=== PATIENT | female | born 1950 | race Caucasian/White ===

== ENCOUNTER 2017-05-08 13:51 | Emergency (ER) | payer MEDICARE, MEDICAID ==
[~2017-05-08] VITALS: Ht 154.9 cm; Wt 81.6 kg
[~2017-05-08 13:51] MED LIST: AMOX500C2 PO; CETI10TA57; CPR500T PO; ETD400T; HYDR12.570 PO; LORA10TA56 PO; METO50TA7 PO; NITR-65 PO; NS.65NA45; ONDAN4ODT PO; PROP20TA23; PROP20TA23 PO; RANI-10 PO; SIMV20TA3 PO
[2017-05-08] MEDS ORDERED: RIZA10TA25 (14:10)
[2017-05-08] MEDS ORDERED: LISI10TA2 PO (14:10)
[2017-05-08] MEDS ORDERED: TRAM50TA2 (14:10)
[2017-05-08] MEDS ORDERED: ENAL10TA (14:10)
[2017-05-08] MEDS ORDERED: SIMV20TA3 (14:10)
[2017-05-08] MEDS ORDERED: MELO15TA39 (14:10)
--- NOTE | 2017-05-08 14:19 | ED Back Pain ---
General Chief Complaint: Back Problems Stated Complaint: BACK PAIN Nursing Triage Note: PT CO OF CHRONIC BACK PAIN STATES HURTS IN UPPER MIDDLE OF BACK RATES 10/10 STATES HAS SOME SORT OF TUMOR THERE Nursing Sepsis Screen: No Definite Risk Source of Information: Patient Exam Limitations: No Limitations History of Present Illness Date Seen by Provider: May 08, 2017 Time Seen by Provider: 14:19 Initial Comments 66 yo female patient presents to the ED with c/o chronic upper and lower back pain that is worse today. patient states she has 2 known lipomas of the back. reports seeing dr. jett a couple of years ago to have the lipoma's removed, but johnie told the patient the wounds would have to be packed for several days or weeks until they were healed. Also c/o BUE and hand tingling/pain especially with crocheting. patient crochets daily. patient takes tramadol without improvement in pain. Pain rated at 10/10. Radiation: Other (pain radiating down the bilateral upper extremities intermittently.) Method of Injury: Unknown (denies known injury) Modifying Factors: Worse With Movement, Worse With Other (worse with palpation) Associated Symptoms: No loss of bladder control, No loss of bowel control Allergies and Home Medications Allergies Coded Allergies: NKANo Known Allergies (Unverified Allergy, Mild, 12/30/07) Home Medications Enalapril Maleate 10 Mg Tablet, (Reported) Hydrocodone Bit/Acetaminophen 1 Tab Tab, 0.5-1 TAB PO Q6H PRN for pain, #14 Ref 0 Prescribed by: AMY ROBERT on 05/08/171506 Lisinopril 10 Mg Tablet, Unknown Dose PO DAILY, (Reported) Meloxicam 15 Mg Tablet, (Reported) Orphenadrine Citrate 100 Mg Tablet.er, 100 MG PO BID PRN for SPASMS, #10 Ref 0 Prescribed by: AMY ROBERT on 05/08/17 150 Prednisone 20 Mg Tab, 40 MG PO DAILY, #10 Ref 0 Prescribed by: AMY ROBERT on 05/08/171506 Rizatriptan Benzoate 10 Mg Tab.clem, (Reported) Simvastatin 20 Mg Tablet, (Reported) Tramadol HCl 50 Mg Tablet, (Reported) Constitutional: no symptoms reported EENTM: no symptoms reported Respiratory: No cough, No dyspnea on exertion, No orthopnea, No phlegm, No short of breath Cardiovascular: No chest pain, No edema, No palpitations, No syncope Gastrointestinal: No abdominal pain, No constipation, No diarrhea, No loss of appetite, No nausea, No vomiting Genitourinary: No decreased output, No dysuria, No frequency, No hematuria, No pain Musculoskeletal: see HPI, back pain, joint pain, No neck pain Skin: no symptoms reported Psychiatric/Neurological: See HPI, Denies Headache, Numbness, Denies Seizure, Tingling, Denies Tremors, Denies Weakness All Other Systems Reviewed Negative Unless Noted: Yes (Negative excepted noted.) Past Kvdstcs-Qlwesz-Jubdze Hx Patient Social History Alcohol Use: Denies Use Recreational Drug Use: No Smoking Status: Never a Smoker Recent Foreign Travel: No Contact w/Someone Who Travel: No Recent Infectious Disease Expo: No Recent Hopitalizations: No Physical Abuse: No Sexual Abuse: No Immunizations Up To Date Date of Influenza Vaccine: Dec 30, 2011 Seasonal Allergies Seasonal Allergies: No Surgeries History of Surgeries: Yes ( BREAST BX) Surgeries: Tubal Ligation Respiratory History of Respiratory Disorde: No Cardiovascular History of Cardiac Disorders: Yes (MILD NC 2007) Neurological History of Neurological Disord: Yes (SHORT TERM MEMORY LOSS, "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") Reproductive System AUTOMOBILE DEALER History: Menopausal Genitourinary History of Genitourinary Disor: No Gastrointestinal History of Gastrointestinal Di: Yes Gastrointestinal Disorders: Gastroesophageal Reflux, Chronic Constipation Musculoskeletal History of Musculoskeletal Dis: Yes (subcutaneous lipoma of the midline back ( at the level of L2) ) Musculoskeletal Disorders: Arthritis, Fractures Endocrine History of Endocrine Disorders: No Cancer History of Cancer: No Psychosocial History of Psychiatric Problem: Yes Behavioral Health Disorders: Depression Suicide Risk Score: 0 Integumentary History of Skin or Integumenta: No Blood Transfusions History of Blood Disorders: No Reviewed Nursing Assessment Reviewed/Agree w Nursing PMH: Yes Family Medical History Significant Family History: No Pertinent Family Hx Physical Exam Vital Signs Vital Signs - First Documented 05/08/17 13:55 Temp 97.9 Pulse 110 Resp 18 B/P (MAP) 162/80 (107) Pulse Ox 96 Capillary Refill : Less Than 3 Seconds General Appearance: No Apparent Distress, WD/WN HEENT: PERRL/EOMI, Pharynx Normal Neck: Full Range of Motion, Normal Inspection, Non Tender, Supple Cardiovascular: Regular Rate, Rhythm, No Edema, No Murmur, Normal Peripheral Pulses Respiratory: Lungs Clear, Normal Breath Sounds, No Accessory Muscle Use, No Respiratory Distress Peripheral Pulses: 2+ Dorsalis Pedis (R), 2+ Left Dors-Pedis (L), 2+ Radial Pulses (R), 2+ Radial Pulses (L) Gastrointestinal: Normal Bowel Sounds, No Organomegaly, Non Tender, Soft, No Distended Back: No Vertebral Tenderness, No Decreased Range of Motion, Muscle Spasm, Other (5x6 cm lipoma of the midline low back with TTP. 3x3 cm lipoma of the upper midline back with TTP. ) Extremity: Normal Capillary Refill, Normal Inspection, Normal Range of Motion, No Calf Tenderness, No Pedal Edema, Other ((+) compression test of the left wrist. no deformity, swelling, or ecchymosis. ) Neurologic/Psychiatric: Alert, Oriented x3, No Motor/Sensory Deficits, Normal Mood/Affect, business transformation consultant II-XII Norm as Tested Skin: Normal Color, Warm/Dry Progress/Results/Core Measures Results/Orders My Orders Orders - AMY ROBERT Hydrocodone/Apap 5/325 Tablet (Lortab 5 (05/08/17 14:56) Vital Signs/I&O Vital Sign - Last 12Hours 05/08/17 05/08/17 13:55 15:27 Temp 97.9 97.9 Pulse 110 110 Resp 18 18 B/P (MAP) 162/80 (107) Pulse Ox 96 96 Blood Pressure Mean: 107 Departure Communication (Admissions) Progress Notes Patient case discussed with Nancy Rico APRN including history, vital signs, and exam findings. Nancy did okay giving patient a prescription for a small amount of hydrocodone. Patient to f/u with her or dr. hayden in the office for recheck. Patient also to f/u with dr. bustamante for discussion of possible need for lipoma excision. patient verbalizes understanding and agrees with the treatment plan. Impression Impression: Primary Impression: Carpal tunnel syndrome of left wrist Additional Impressions: Radiculopathy Qualified Codes: M54.13 - Radiculopathy, cervicothoracic region Lipoma of back Disposition: 01 HOME, SELF-CARE Condition: Improved Departure-Patient Inst. Decision time for Depature: 15:03 Referrals: BRIANA BUSTAMANTE BRETT D DO IPSEN, BRIAN J MD SEGLIE, FLOYD R MD (PCP/Family) Primary Care Physician Patient Instructions: Carpal Tunnel Syndrome (DC), Lipoma , Radiculopathy (DC) Add. Discharge Instructions: All discharge instructions reviewed with patient and/or family. Voiced understanding. Medications as instructed. Do not use tramadol with the medications prescribed in the emergency department. Continue meloxicam as instructed by Dr. Hayden. Avoid repetitive use of the bilateral hands and forearms for 5-7 days. Use ice packs or heating pads as needed for pain. Follow-up with Dr. Bustamante or Dr. Burns as an outpatient for discussion of lipoma removal. Call their office for appointment time. Follow-up with Dr. Hayden as an outpatient for recheck and for possible need of an outpatient MRI to further evaluate the radiculopathy symptoms and carpal symptoms. Call for appointment time. Return to the emergency department for worsened symptoms or any other concerns. Scripts Hydrocodone Bit/Acetaminophen (Hydrocodone/Acetaminophen 5/325mg Tablet) 1 Tab Tab 0.5-1 TAB PO Q6H Y for pain, #14 TAB 0 Refills Prov: AMY ROBERT 05/08/17 Orphenadrine Citrate (Orphenadrine Citrate) 100 Mg Tablet.er 100 MG PO BID Y for SPASMS, #10 TAB 0 Refills Prov: AMY ROBERT 05/08/17 Prednisone (Prednisone) 20 Mg Tab 40 MG PO DAILY, #10 TAB 0 Refills Prov: AMY ROBERT 05/08/17 Copy Copies To 1: VIVIAN HAYDEN MD, GRETCHEN L PA May 08, 2017 14:19
[2017-05-08] MEDS ORDERED: HYDROcodone/APAP 5 MG/325 MG (LORTAB) TAB PO STA (14:56)
[2017-05-08] MEDS ORDERED: PRD20T PO (15:07)
[2017-05-08] MEDS ORDERED: ORPH100T PO (15:07)
[2017-05-08] MEDS ORDERED: ACHD5005 PO (15:07)
[2017-05-08 15:27] VITALS: BP 162/80
--- OUTSIDE RECORDS SUMMARY | 2017-05-11 05:41 | XMS REPORT | Continuity of Care Document ---
Author Author [facility] Organization [facility] Address Unknown Phone Unavailable Allergies Active Description Code Type Severity Reaction Onset Reported/Identified Relationship to Patient Clinical Status Yes NKANo Known Allergies NKA Miscellaneous Allergy Mild N/A 12/30/2007 Medications There is no data. Problems Date Dx Coded Attending Type Code Diagnosis Diagnosed By 10/09/2009 Ot 276.51 10/09/2009 Ot 599.0 10/09/2009 Ot 784.0 10/09/2009 Ot 787.03 10/09/2009 Ot 789.00 03/02/2010 Ot 558.9 03/02/2010 Ot 787.03 10/08/2010 Ot 401.9 HYPERTENSION NOS 10/08/2010 Ot 719.46 JOINT PAIN-L /LEG 10/08/2010 Ot 729.5 PAIN IN LIMB 10/08/2010 Ot 780.4 DIZZINESS AND GIDDINESS 10/08/2010 Ot V15.88 HISTORY OF FALL 10/08/2010 Ot V57.1 PHYSICAL THERAPY NEC 04/22/2011 Ot 461.9 ACUTE SINUSITIS NOS 04/22/2011 Ot 786.2 COUGH 06/27/2012 Ot 558.9 NONINF GASTROENTERIT NEC 06/27/2012 Ot 599.0 URIN TRACT INFECTION NOS 06/27/2012 Ot 787.01 NAUSEA WITH VOMITING 11/25/2014 LADAN TIMMONS DO Ot V76.12 12/13/2014 LADAN TIMMONS DO Ot V76.12 12/15/2014 CARMEN BELTRAN DO Ot 782.2 12/21/2014 CARMEN BELTRAN DO Ot 553.3 12/21/2014 CARMEN BELTRAN DO Ot 782.2 12/21/2014 CARMEN BELTRAN DO Ot V81.5 12/28/2014 LADAN TIMMONS DO Ot 793.80 01/03/2015 CARMEN BELTRAN DO Ot 553.3 01/03/2015 DEVIN DO, CHANDROUTIE Ot 782.2 01/03/2015 DEVIN DO, PENELOPEROUTIE Ot V81.5 01/04/2015 GELLENDER DO, LADAN Nguyễn Ot 793.80 02/07/2015 GELLENDER DO, LADAN Nguyễn Ot V76.12 02/07/2015 DEVIN DO, LUISTIE Ot 782.2 06/14/2015 GELLENDER DO, LADAN Nguyễn Ot V76.12 06/14/2015 DEVIN DO, CHANDROUTIE Ot 782.2 06/14/2015 GELLENDER DO, LADAN Nguyễn Ot 793.80 06/14/2015 DEVIN DO, PENELOPEROUTIE Ot 553.3 06/14/2015 DEVIN DO, PNEELOPEROUTIE Ot 782.2 06/14/2015 DEVIN DO, CARMEN Ot V81.5 06/15/2015 GELLENDER DO, LADAN Nguyễn Ot N63 06/20/2015 GELLENDER DO, LADAN Nguyễn Ot N63 07/04/2015 GELLENDER DO, LADAN Nguyễn Ot N63 07/12/2015 GELLENDER DO, LADAN Nguyễn Ot N63 12/07/2015 GELLENDER DO, LADAN Nguyễn Ot V76.12 OTH SCREEN MAMMO-MALIGN NEOPLASM OF JAZ 12/07/2015 DEVIN DO, CARMEN Ot 782.2 LOCAL SUPRFICIAL SWELLNG 12/07/2015 GELLENDER DO, LADAN Nguyễn Ot 793.80 UNSPEC ABNORMAL MAMMOGRAM 12/07/2015 DEVIN DO, CARMEN Ot 553.3 DIAPHRAGMATIC HERNIA 12/07/2015 DEVIN DO, CHANDROUTIE Ot 782.2 LOCAL SUPRFICIAL SWELLNG 12/07/2015 DEVIN DO, CHANDROUTIE Ot V81.5 SCREEN FOR NEPHROPATHY 12/07/2015 GELLENDER DO, LADAN Nguyễn Ot N63 UNSPECIFIED LUMP IN BREAST 12/07/2015 GELLENDER DO, LADAN Nguyễn Ot V76.12 OTH SCREEN MAMMO-MALIGN NEOPLASM OF JAZ 12/07/2015 DEVIN DO, CHANDROUTIE Ot 782.2 LOCAL SUPRFICIAL SWELLNG 12/07/2015 GELLENDER DO, LADAN Nguyễn Ot 793.80 UNSPEC ABNORMAL MAMMOGRAM 12/07/2015 DEVIN DO PENELOPEVILMA Ot 553.3 DIAPHRAGMATIC HERNIA 12/07/2015 [facility] CARMEN Ot 782.2 LOCAL SUPRFICIAL SWELLNG 12/07/2015 DEVIN CARMEN Ot V81.5 SCREEN FOR NEPHROPATHY 12/07/2015 LADAN TIMMONS DO Delma Ot N63 UNSPECIFIED LUMP IN BREAST 12/07/2015 [place] , EDITA Palma Ot S40.862A INSECT BITE (NONVENOMOUS) OF LEFT UPPER 12/07/2015 KIKE DO, EDITA Palma Ot W57.XXXA BIT/STUNG BY NONVENOM INSECT OTH NONVE 12/07/2015 [place] , EDITA Palma Ot Y99.8 OTHER EXTERNAL CAUSE STATUS 12/08/2015 KIKE , EDITA Palma Ot S40.862A INSECT BITE (NONVENOMOUS) OF LEFT UPPER 12/08/2015 [place] DO, EDITA Palma Ot W57.XXXA BIT/STUNG BY NONVENOM INSECT OTH NONVE 12/08/2015 [place] , EDITA Palma Ot Y99.8 OTHER EXTERNAL CAUSE STATUS Procedures There is no data. Results There is no data. Encounters ACCT No. Visit Date/Time Discharge Status Pt. Type Provider Facility Loc./Unit Complaint [id number] 05/08/2017 13:53:00 05/08/2017 15:25:00 DIS Emergency AMY STEVENS [facility] ER BACK PAIN [id number] 12/07/2015 04:04:00 12/07/2015 04:17:00 DIS Emergency KIKE EDITA LAU [facility] ER BITE ON LEFT ARM [id number] 06/14/2015 13:26:00 06/14/2015 23:59:59 CLS Outpatient LADAN TIMMONS DO [facility] RAD ABNORMAL MAMMO [id number] 12/07/2014 13:32:00 12/07/2014 23:59:59 CLS Outpatient LADAN TIMMONS DO [facility] RAD ABD MAMMO [id number] 12/01/2014 08:52:00 12/01/2014 23:59:59 CLS Outpatient CARMEN BELTRAN DO [facility] RAD BACK MASS [id number] 11/25/2014 13:29:00 11/25/2014 23:59:59 CLS Outpatient DEVIN CARMEN [facility] RAD MASSES ON BACK [id number] 11/22/2014 13:27:00 11/22/2014 23:59:59 CLS Outpatient LADAN TIMMONS DO [facility] RAD SCREENING [id number] 06/27/2012 15:36:00 Document Registration [id number] 04/21/2011 23:59:00 Document Registration [id number] 09/20/2010 13:03:00 Document Registration [id number] 03/02/2010 08:25:00 Document Registration [id number] 10/09/2009 12:52:00 Document Registration
== END 2017-05-08 15:25 | disposition home or self-care (01) ==
LOC: EDUNIT# 13:51 → ER 13:53
DX: G56.02 Carpal tunnel syndrome, left upper limb (principal); D17.1 Benign lipomatous neoplasm of skin and subcutaneous tissue of trunk; M54.13 Radiculopathy, cervicothoracic region; I25.2 Old myocardial infarction; K21.9 Gastro-esophageal reflux disease without esophagitis; F32.9 Major depressive disorder, single episode, unspecified; Z87.19 Personal history of other diseases of the digestive system; Z88.1 Allergy status to other antibiotic agents; Z98.51 Tubal ligation status
CPT/HCPCS: 99283

== ENCOUNTER 2017-05-27 06:03 | Outpatient (CLI) | payer MEDICARE, MEDICAID ==
[~2017-05-27] VITALS: Ht 154.9 cm; Wt 81.6 kg
[~2017-05-27 06:03] MED LIST changes: +ACHD5005 PO; +ENAL10TA; +LISI10TA2 PO; +MELO15TA39; +ORPH100T PO; +PRD20T PO; +RIZA10TA25; +SIMV20TA3; +TRAM50TA2
== END 2017-05-27 12:44 ==
LOC: PREOP 06:03
PROVIDERS: ATTEND Surgery
DX: Z01.818 Encounter for other preprocedural examination (principal); D17.79 Benign lipomatous neoplasm of other sites

== ENCOUNTER 2017-06-05 10:10 | Day surgery (SDC) | payer MEDICARE, MEDICAID ==
[~2017-06-05] VITALS: Ht 154.9 cm; Wt 81.6 kg
[2017-06-05] MEDS: LACTATED RINGERS 1,000 ML IV PRN ×2 (10:20→12:25)
--- OUTSIDE RECORDS SUMMARY | 2017-06-05 10:29 | XMS REPORT | Continuity of Care Document ---
Author Author [facility] Organization [facility] Address Unknown Phone Unavailable Allergies Active Description Code Type Severity Reaction Onset Reported/Identified Relationship to Patient Clinical Status Yes NKANo Known Allergies NKA Miscellaneous Allergy Mild N/A 12/30/2007 Yes No Known Drug Allergies [id number] Drug Allergy Unknown N/A 05/27/2017 Medications There is no data. Problems Date [...] 12/28/2014 LADAN TIMMONS DO Ot 793.80 01/03/2015 DEVIN DO, CHANDROUTIE Ot 553.3 01/03/2015 DEVIN DO, CHANDROUTIE Ot 782.2 01/03/2015 DEVIN DO, CHANDROUTIE Ot V81.5 01/04/2015 GELLENDER DO, LADAN Nguyễn Ot 793.80 02/07/2015 GELLENDER DO, LADAN Delma Ot V76.12 02/07/2015 DEVIN DO, CHANDROUTIE Ot 782.2 06/14/2015 GELLENDER DO, LADAN Delma Ot V76.12 06/14/2015 DEVIN DO, CHANDROUTIE Ot 782.2 06/14/2015 GELLENDER DO, LADAN Delma Ot 793.80 06/14/2015 DEVIN DO, CHANDROUTIE Ot 553.3 06/14/2015 DEVIN DO, PENELOPEROUTIE Ot 782.2 06/14/2015 DEVIN DO, LUISTIE Ot V81.5 06/15/2015 GELLENDER DO, LADAN Delma Ot N63 06/20/2015 GELLENDER DO, LADAN Nguyễn Ot N63 07/04/2015 GELLENDER DO, LADAN Nguyễn Ot N63 07/12/2015 GELLENDER DO, LADAN Nguyễn Ot N63 12/07/2015 GELLENDER DO, LADAN Delma Ot V76.12 OTH SCREEN MAMMO-MALIGN NEOPLASM OF JAZ 12/07/2015 DEVIN DO, CHANDROUTIE Ot 782.2 LOCAL SUPRFICIAL SWELLNG 12/07/2015 [facility] LAD[facility] Delma Ot 793.80 UNSPEC ABNORMAL MAMMOGRAM 12/07/2015 DEVIN DO, CHANDROUTIE Ot 553.3 DIAPHRAGMATIC HERNIA 12/07/2015 DEVIN DO, CHANDROUTIE Ot 782.2 LOCAL SUPRFICIAL SWELLNG 12/07/2015 DEVIN DO, CHANDROUTIE Ot V81.5 SCREEN FOR NEPHROPATHY 12/07/2015 [facility], LADAN Nguyễn Ot N63 UNSPECIFIED LUMP IN BREAST 12/07/2015 GELLENDER DO, LADAN Nguynễ Ot V76.12 OTH SCREEN MAMMO-MALIGN NEOPLASM OF JAZ 12/07/2015 DEVIN DO, CHANDROUTIE Ot 782.2 LOCAL SUPRFICIAL SWELLNG 12/07/2015 LADAN TIMMONS DO Ot 793.80 UNSPEC ABNORMAL MAMMOGRAM 12/07/2015 DEVIN DO, PENELOPEVILMA Ot 553.3 DIAPHRAGMATIC HERNIA 12/07/2015 [facility] , PENELOPEVILMA Ot 782.2 LOCAL SUPRFICIAL SWELLNG 12/07/2015 DEVIN , PENELOPEVILMA Ot V81.5 SCREEN FOR NEPHROPATHY 12/07/2015 LADAN TIMMONS DO Ot N63 UNSPECIFIED LUMP IN BREAST 12/07/2015 [facility] , EDITA K Ot S40.862A INSECT BITE (NONVENOMOUS) OF LEFT UPPER 12/07/2015 [place] , EDITA K Ot W57.XXXA BIT/STUNG BY NONVENOM INSECT OTH NONVE 12/07/2015 KIKE , EDITA K Ot Y99.8 OTHER EXTERNAL CAUSE STATUS 12/08/2015 KI[facility] , EDITA K Ot S40.862A INSECT BITE (NONVENOMOUS) OF LEFT UPPER 12/08/2015 [place] , EDITA K Ot W57.XXXA BIT/STUNG BY NONVENOM INSECT OTH NONVE 12/08/2015 KIKE , EDITA K Ot Y99.8 OTHER EXTERNAL CAUSE STATUS 05/08/2017 AMY STEVENS Ot D17.1 BENIGN LIPOMATOUS NEOPLASM OF SKIN, SUBC 05/08/2017 AMY STEVENS Ot F32.9 MAJOR DEPRESSIVE DISORDER, SINGLE EPISOD 05/08/2017 AMY STEVENS Ot G56.02 CARPAL TUNNEL SYNDROME, LEFT UPPER LIMB 05/08/2017 AMY STEVENS Ot I25.2 OLD MYOCARDIAL INFARCTION 05/08/2017 AMY STEVENS Ot K21.9 GASTRO-ESOPHAGEAL REFLUX DISEASE WITHOUT 05/08/2017 AMY STEVENS Ot M54.13 RADICULOPATHY, CERVICOTHORACIC REGION 05/08/2017 AMY STEVENS Ot M54.5 LOW BACK PAIN 05/08/2017 AMY STVEENS Ot Z87.19 PERSONAL HISTORY OF OTHER DISEASES OF TH 05/08/2017 AMY STEVENS Ot Z88.1 ALLERGY STATUS TO OTHER ANTIBIOTIC AGENT 05/08/2017 AMY STEVENS Ot Z98.51 TUBAL LIGATION STATUS 05/27/2017 LADAN TIMMONS DO Delma Ot V76.12 OTH SCREEN MAMMO-MALIGN NEOPLASM OF JAZ 05/27/2017 DEVIN PENELOPEVILMA Ot 782.2 LOCAL SUPRFICIAL SWELLNG 05/27/2017 LADAN TIMMONS DO Ot 793.80 UNSPEC ABNORMAL MAMMOGRAM 05/27/2017 DEVIN PENELOPEVILMA Ot 553.3 DIAPHRAGMATIC HERNIA 05/27/2017 [facility] PENELOPEVILMA Ot 782.2 LOCAL SUPRFICIAL SWELLNG 05/27/2017 [facility] PENELOPEVILMA Ot V81.5 SCREEN FOR NEPHROPATHY 05/27/2017 SHANELLE LAULADAN Ot N63 UNSPECIFIED LUMP IN BREAST 05/28/2017 LETY RODRIGUEZ DO Ot D17.79 BENIGN LIPOMATOUS NEOPLASM OF OTHER SITE 05/28/2017 LETY RODRIGUEZ DO Ot Z01.818 ENCOUNTER FOR OTHER PREPROCEDURAL EXAMIN Procedures There is no data. Results There is no data. Encounters ACCT No. Visit Date/Time Discharge Status Pt. Type Provider Facility Loc./Unit Complaint [id number] 05/29/2017 08:45:00 05/29/2017 23:59:59 CLS [facility]readmit [facility] [id number] 05/27/2017 06:03:00 05/27/2017 12:44:00 DIS Outpatient LETY RODRIGUEZ DO [facility] PREOP LIPOMAS [id number] 05/08/2017 13:53:00 05/08/2017 15:25:00 DIS Emergency AMY STEVENS [facility] ER BACK PAIN [id number] 12/07/2015 04:04:00 12/07/2015 04:17:00 DIS Emergency EDITA STOKES DO [facility] ER BITE ON LEFT ARM [id number] 06/14/2015 13:26:00 06/14/2015 23:59:59 CLS Outpatient LADAN TIMMONS DO [facility] RAD ABNORMAL MAMMO [id number] 12/07/2014 13:32:00 12/07/2014 23:59:59 CLS Outpatient LADAN TIMMONS DO [facility] RAD ABD MAMMO [id number] 12/01/2014 08:52:00 12/01/2014 23:59:59 CLS Outpatient DEVIN DO PENELOPEVILMA [facility] RAD BACK MASS [id number] 11/25/2014 13:29:00 11/25/2014 23:59:59 CLS Outpatient CARMEN BELTRAN DO [facility] RAD MASSES ON BACK [id number] 11/22/2014 13:27:00 11/22/2014 23:59:59 CLS Outpatient LADAN TIMMONS DO [facility] RAD SCREENING [id number] 06/27/2012 15:36:00 Document Registration [id number] 04/21/2011 23:59:00 Document Registration [id number] 09/20/2010 13:03:00 Document Registration [id number] 03/02/2010 08:25:00 Document Registration [id number] 10/09/2009 12:52:00 Document Registration
[2017-06-05 10:44] VITALS: BP 143/89
[2017-06-05] MEDS ORDERED: LIDOCAINE 1% INJ 20 ML (XYLOCAINE) VIAL ONE (10:44)
[2017-06-05] MEDS ORDERED: BUPIVACAINE 0.5% 30 ML (SENSORCAINE) VIAL ONE (10:44)
[2017-06-05] MEDS ORDERED: ceFAZolin 2 GM IV Premixed 50 ML IV ONE (10:45)
[2017-06-05] MEDS ORDERED: FAMOTIDINE 20MG/2ML IV (PEPCID) ONE (10:47)
[2017-06-05] MEDS ORDERED: ONDANSETRON 4 MG/2 ML (SDV) Z0FRAN ONE ×2 (10:47→11:31)
[2017-06-05] MEDS ORDERED: LACTATED RINGERS 1,000 ML IV PRN (10:51)
[2017-06-05] MEDS ORDERED: ONDANSETRON 4 MG/2 ML (SDV) Z0FRAN IV ONE (11:00)
[2017-06-05] MEDS ORDERED: MIDAZOLAM 2 MG/2 ML (VERSED) VIAL IV ONE (11:00)
[2017-06-05] MEDS ORDERED: FAMOTIDINE 20MG/2ML IV (PEPCID) IV ONE (11:00)
--- NOTE | 2017-06-05 11:22 | Progress Note-Pre Operative ---
Pre-Operative Progress Note H&P Reviewed The H&P was reviewed, patient examined and no changes noted. Date Seen by Provider: Jun 05, 2017 Time Seen by Provider: 11:22 Date H&P Reviewed: Jun 05, 2017 Time H&P Reviewed: 11:22 Pre-Operative Diagnosis: LIPOMA BACK X 2 LETY RODRIGUEZ DO Jun 05, 2017 11:22
[2017-06-05] MEDS ORDERED: morphine INJ 10 MG/ML 1ML (SYR OR VIAL) IVP PRN (12:45)
[2017-06-05] MEDS ORDERED: MEPERIDINE (DEMEROL) INJ 50 MG/ML IVP PRN (12:45)
[2017-06-05] MEDS ORDERED: ONDANSETRON 4 MG/2 ML (SDV) Z0FRAN IVP PRN (12:45)
--- NOTE | 2017-06-05 13:17 | Progress Note-Post Operative ---
Post-Operative Progess Note Surgeon (s)/Rag Shredder (s) Surgeon LETY RODRIGUEZ DO Rag Shredder: na Pre-Operative Diagnosis LIPOMA BACK X 2 Post-Operative Diagnosis same Procedure & Operative Findings Date of Procedure 06/05/17 Procedure Performed/Findings excision lipomas of back 3x3cm and 6x7cm Anesthesia Type gen Estimated Blood Loss Estimated blood loss (mL): minimal Specimens/Packing Specimens Removed lipomas back x 2 LETY RODRIGUEZ DO Jun 05, 2017 13:17
--- NOTE | 2017-06-05 13:20 | Discharge Inst-Simple/Standard ---
Discharge Inst-Standard Patient Instructions/Follow Up Plan of Care/Instructions/FU: 2 weeks Grant Activity as Tolerated: No Discharge Diet: Regular Diet Other Inst to Patient Follow up Appt: Make appointment for 2 week. Instructions: No lifting greater than 10 pounds. No strenuous activity. May shower in 24 hours, no tub bath or soaking. Use incentive spirometer at home as directed. No Smoking Skin/Wound Care: May remove bandages in 24 hours. You need to leave the white strips over incision on they will fall off on their own. Symptoms to Report: Appetite Changes, Extremity Discoloration, Numbness/Tingling, Swelling Increased , Bleeding Excessive, Eyesight Changes, Pain Increased, Urine Color Change, Constipation(Persistent), Fever over 101 degree F, Pain/Pressure in chest, Urinating Difficulty, Cough Up/Vomit Blood, Heart Beat Irreg/Pounding, Pain/ Pressure in jaw, Vaginal Bleeding Increase, Cramps in feet or legs, Lightheadedness, Pain/Pressure in shoulder, Diarrhea(Persistent), Memory Changes Suddenly, Questions/Concerns, Weight gain consecutive days, Dizziness/ Fainting, Nausea/Vomiting, Shortness of Breath, Weight gain over 2 pounds If questions or concerns contact your physician Or seek help at emergency department. LETY RODRIGUEZ DO Jun 05, 2017 13:20
[2017-06-05 13:45] VITALS: BP 138/67
--- NOTE | 2017-06-05 14:00 | Anesthesia-General Post-Op ---
General Patient Condition Mental Status/LOC: Same as Preop Cardiovascular: Satisfactory Nausea/Vomiting: Absent Respiratory: Satisfactory Pain: Controlled Complications: Absent Post Op Complications Complications None Follow Up Care/Instructions Patient Instructions None needed. Anesthesia/Patient Condition Patient Condition Patient is doing well, no complaints, stable vital signs, no apparent adverse anesthesia problems. No complications reported per nursing. D/C home per [facility] Criteria: No CECILE CLARKE CRNA Jun 05, 2017 14:00
[2017-06-05 14:15] VITALS: BP 133/53
[2017-06-05 14:49] VITALS: BP 133/53
--- NOTE | 2017-06-05 19:45 | OPERATIVE REPORT ---
DATE OF SERVICE: 06/05/2017 PREOPERATIVE DIAGNOSIS: Back lipomas x2. POSTOPERATIVE DIAGNOSIS: Back lipomas x2. PROCEDURE PERFORMED: Excision of back lipoma, upper back 3 x 3 cm and lower back 6 x 7 cm subcutaneous layer. SURGEON: Lety Burns DO. ANESTHESIA: General. ESTIMATED BLOOD LOSS: Minimal. COMPLICATIONS: None. INDICATIONS: The patient is a 67-year-old female with two lipomas on her back that are causing her significant pain. She understands risks and benefits of procedure and wished to proceed with procedure. Consent was signed and in the chart. DESCRIPTION OF PROCEDURE: The patient was taken to the operating suite. She was prepped and draped in sterile fashion. Surgical pause was performed. A 15 blade scalpel was used to make incision over the palpable mass. Dissection was taken down to subcutaneous tissue. Cautery was used to dissect around the mass measuring 3 x 3 cm and removing the lipomatous mass. The wound was then irrigated with copious amounts of irrigation, closed with 2-0 Prolene in simple interrupted fashion. The left lower back with a larger mass present. I had 15 blade scalpel used to make incision over it. Cautery was used to dissect down to the subcutaneous tissue. This had a lobulated lipoma that had multiple fingers off of it. The area was swept removing the lipoma. This was brought out in pieces. The overall size was 6 x 7 cm. The wound was irrigated with copious amounts of irrigation and the skin was then closed using 2-0 Prolene in simple interrupted fashion. A total of 20 mL of 0.5% Marcaine and 1% lidocaine in 50:50 ratio was used to anesthetize the area. The patient then had the area washed and dried and sterile bandage applied. The patient tolerated procedure well without any complications. She was taken to recovery room in stable condition. Job ID: [id number] DocumentID: [id number] Dictated Date: 06/05/2017 13:26:08 Product Director Date: 06/05/2017 19:45:06 Dictated By: LETY BURNS DO
== END 2017-06-05 14:50 | disposition home or self-care (01) ==
LOC: SDC 10:10
PROVIDERS: ATTEND Surgery
DX: D17.1 Benign lipomatous neoplasm of skin and subcutaneous tissue of trunk (principal); I10 Essential (primary) hypertension; F41.9 Anxiety disorder, unspecified; M19.90 Unspecified osteoarthritis, unspecified site; K21.9 Gastro-esophageal reflux disease without esophagitis; Z79.899 Other long term (current) drug therapy
CPT/HCPCS: 87081

== ENCOUNTER → 2017-12-15 | Outpatient (CLI) | payer MEDICARE, MEDICAID ==
--- NOTE | 2017-12-16 10:07 | Diagnostic Imaging Report ---
INDICATION: Routine screening. Comparison is made with prior exam from 06/14/2015 and 11/22/2014. 2-D and 3-D bilateral screening mammography was performed with a Computer Aided Detection (CAD) system. FINDINGS: Scattered fibroglandular densities are identified bilaterally. The area of nodularity in the medial aspect of the right breast appears stable. Slight nodularity in the lateral aspect of the left breast is stable. No new mass or malignant appearing microcalcifications are seen. Axillae are unremarkable. IMPRESSION: No mammographic features suspicious for malignancy are identified. ACR BI-RADS Category 2: Benign findings. Result letter will be mailed to the patient. Note: At least 10% of breast cancer is not imaged by mammography. Dictated by: Dictated on workstation # [id number]
== END ==
LOC: RAD 14:13
PROVIDERS: ATTEND Family Medicine
DX: Z12.31 Encounter for screening mammogram for malignant neoplasm of breast (principal)
CPT/HCPCS: 77067

== ENCOUNTER → 2019-02-16 | Outpatient (CLI) | payer MEDICARE, MEDICAID ==
[2019-02-16 11:11] LABS: BASOPHILS % (AUTO) 1 % (0-10); EOSINOPHILS # (AUTO) 0.1 10^3/uL (0.0-0.3); EOSINOPHILS % (AUTO) 2 % (0-10); HEMATOCRIT 42 % (35-52); LYMPHOCYTES # (AUTO) 0.8 X 10^3 (1.0-4.0); LYMPHOCYTES % (AUTO) 20 % (12-44); MEAN CORPUSCULAR HEMOGLOBIN 29 PG (25-34); MEAN CORPUSCULAR HGB CONC 33 G/DL (32-36); MEAN CORPUSCULAR VOLUME 87 FL (80-99); MEAN PLATELET VOLUME 9.7 FL (7.4-10.4); MONOCYTES # (AUTO) 0.5 X 10^3 (0.0-1.0); MONOCYTES % (AUTO) 11 % (0-12); NEUTROPHILS # (AUTO) 2.7 X 10^3 (1.8-7.8); NEUTROPHILS % (AUTO) 67 % (42-75); PLATELET COUNT 211 10^3/uL (130-400); RED CELL DISTRIBUTION WIDTH 12.9 % (10.0-14.5); WHITE BLOOD COUNT 4.1 10^3/uL (4.3-11.0)
[2019-02-16 11:30] LABS: ALANINE AMINOTRANSFERASE 12 U/L (0-55); ALBUMIN 4.4 GM/DL (3.2-4.5); ALKALINE PHOSPHATASE 97 U/L (40-136); BUN/CREATININE RATIO 20; CALCIUM 9.7 MG/DL (8.5-10.1); CARBON DIOXIDE 27 MMOL/L (21-32); CHLORIDE 107 MMOL/L (98-107); CREATININE SERUM 0.85 MG/DL (0.60-1.30); GFR ESTIMATED > 60; GLUCOSE 104 MG/DL (70-105); POTASSIUM 4.1 MMOL/L (3.6-5.0); SODIUM 144 MMOL/L (135-145); TOTAL PROTEIN 7.1 GM/DL (6.4-8.2)
== END ==
LOC: LAB 10:56
PROVIDERS: ATTEND Family Medicine
DX: I10 Essential (primary) hypertension (principal); E78.2 Mixed hyperlipidemia
CPT/HCPCS: 36415; 80053; 84443; 85025

== ENCOUNTER 2020-09-12 05:37 | Outpatient (CLI) | payer MEDICARE, MEDICAID ==
[~2020-09-12] VITALS: Ht 154.9 cm; Wt 67.1 kg
[~2020-09-12 05:37] MED LIST changes: -ENAL10TA; +ENAL10TA16; -LISI10TA2 PO; +LISI10TA25 PO; -RIZA10TA25; +RIZA10TA94; +SIMV20TA26; -SIMV20TA3; -TRAM50TA2; +TRM50T
[2020-09-13] MEDS ORDERED: CYCL10TA9 PO (16:04)
[2020-09-13] MEDS ORDERED: MELO10CA3 PO (16:04)
[2020-09-13] MEDS ORDERED: SIMV10TA26 PO (16:04)
== END 2020-09-14 08:41 | disposition home or self-care (01) ==
LOC: PREOP 05:37
PROVIDERS: ATTEND Surgery
DX: Z01.818 Encounter for other preprocedural examination (principal)

== ENCOUNTER 2020-09-19 10:13 | Day surgery (SDC) | payer MEDICARE, MEDICAID ==
[~2020-09-19] VITALS: Ht 154 cm; Wt 67.0 kg
[~2020-09-19 10:13] MED LIST changes: +CYCL10TA9 PO; +MELO10CA3 PO; +SIMV10TA26 PO
[2020-09-19] MEDS ORDERED: LACTATED RINGERS 1,000 ML IV STA (10:15)
[2020-09-19 10:40] VITALS: BP 146/68
[2020-09-19] MEDS ORDERED: MIDAZOLAM 2 MG/2 ML (VERSED) VIAL ONE (10:45)
[2020-09-19] MEDS ORDERED: PROPOFOL INJECTION 50 ML IV ONE (10:45)
--- NOTE | 2020-09-19 11:19 | Progress Note-Post Operative ---
Post-Operative Progess Note Surgeon (s)/Section Chief (s) Surgeon LETY RODRIGUEZ DO Section Chief: na Pre-Operative Diagnosis screening colon Post-Operative Diagnosis diverticulosis Procedure & Operative Findings Date of Procedure 09/19/20 Procedure Performed/Findings colonoscopy Anesthesia Type per material control specialist Estimated Blood Loss Estimated blood loss (mL): none Specimens/Packing Specimens Removed na LETY RODRIGUEZ DO Sep 19, 2020 11:19
[2020-09-19 11:20] VITALS: BP 102/51
--- NOTE | 2020-09-19 11:20 | Discharge Inst-Simple/Standard ---
Discharge Inst-Standard Patient Instructions/Follow Up Plan of Care/Instructions/FU: Grant 10 years for repeat colonoscopy unless family history of colon cancer which would be 5 years. Any issues before that be seen at that time. Activity as Tolerated: Yes Discharge Diet: Regular Diet (high fiber diet) LETY RODRIGUEZ DO Sep 19, 2020 11:20
[2020-09-19 11:25] VITALS: BP_SYST 110; BP_SYST 92; BP_DIAS 47; BP_DIAS 72
[2020-09-19 11:49] VITALS: BP 129/56
[2020-09-19 11:50] VITALS: BP 129/56
--- NOTE | 2020-09-19 14:15 | Anesthesia-General Post-Op ---
MAC Patient Condition Mental Status/LOC: Same as Preop Cardiovascular: Satisfactory Nausea/Vomiting: Absent Respiratory: Satisfactory Pain: Controlled Complications: Absent Post Op Complications Complications None Follow Up Care/Instructions Patient Instructions None needed. Anesthesiology Discharge Order Discharge Order Patient is doing well, no complaints, stable vital signs, no apparent adverse anesthesia problems. No complications reported per nursing. RAFAELA NIXON X RAY CONTROL EQUIPMENT REPAIRER Sep 19, 2020 14:15
--- NOTE | 2020-09-19 15:06 | OPERATIVE REPORT ---
DATE OF SERVICE: 09/19/2020 PREOPERATIVE DIAGNOSIS: Screening colonoscopy. POSTOPERATIVE DIAGNOSIS: Diverticulosis. PROCEDURE: Colonoscopy. SURGEON: Lety Burns DO ANESTHESIA: Per [employer]. ESTIMATED BLOOD LOSS: None. COMPLICATIONS: None. INDICATIONS: The patient is a 70-year-old female needing screening colonoscopy. She understands risks and benefits of procedure and wished to proceed with procedure. Consent was signed in the chart. DESCRIPTION OF PROCEDURE: The patient was taken to endoscopy suite, placed in left lateral recumbent position. Timeout was performed. Digital rectal exam was performed. There were no palpable polyps, masses or ulcerations. Scope was inserted in the rectum, advanced all the way to cecum with minimal difficulty. Prep was adequate. Scope was then slowly retracted back. No polyps, masses or ulcerations within the cecum, ascending, transverse, descending and sigmoid colon. Throughout the left colon, some minimal amount of diverticulosis was present. Once scope was in the rectum, scope was retroflexed noting no other pathology. Scope was returned to its normal position, slowly withdrawn until completely removed. The patient tolerated procedure well without any complications. She was taken to recovery room in stable condition. RECOMMENDATIONS: The patient was recommended high fiber diet . The patient will need repeat colonoscopy in 10 years unless family history of colon cancer, which will then be 5 years. Risks and benefits should be examined at that time due to screening guidelines. Job ID: [id number] DocumentID: [id number] Dictated Date: 09/19/2020 11:23:05 Card Scraper Date: 09/19/2020 15:05:20 Dictated By: LETY BURNS DO
== END 2020-09-19 11:53 | disposition home or self-care (01) ==
LOC: ENDO 10:13
PROVIDERS: ATTEND Surgery
DX: Z12.11 Encounter for screening for malignant neoplasm of colon (principal); K57.30 Diverticulosis of large intestine without perforation or abscess without bleeding; I10 Essential (primary) hypertension; I25.10 Atherosclerotic heart disease of native coronary artery without angina pectoris; F32.9 Major depressive disorder, single episode, unspecified; Z79.899 Other long term (current) drug therapy

== ENCOUNTER → 2020-09-22 | Outpatient (CLI) | payer MEDICARE, MEDICAID ==
--- NOTE | 2020-09-22 14:43 | Diagnostic Imaging Report ---
Indication: Breast nodules. Correlation is made prior mammograms 12/15/2017 and 06/14/2015. 2-D and 3-D bilateral diagnostic mammography was performed with CAD. Both breasts are heterogeneously dense, limiting the sensitivity of mammography. Areas of nodularity in the medial right breast are stable. No dominant mass or malignant appearing microcalcifications are seen. Axillae are unremarkable. IMPRESSION: BI-RADS Category 2 No mammographic features suspicious for malignancy are identified. ACR BI-RADS Category 2: Benign findings. Result letter will be mailed to the patient. Note: At least 10% of breast cancer is not imaged by mammography. Dictated by: Dictated on workstation # [id number]
== END ==
LOC: RAD 13:15
PROVIDERS: ATTEND Physician Assistant
DX: N63.0 Unspecified lump in unspecified breast (principal); Z87.2 Personal history of diseases of the skin and subcutaneous tissue
CPT/HCPCS: 77062; 77066